=== PATIENT | female | born 1985 | race Caucasian/White ===

== ENCOUNTER 2017-02-12 19:07 | Emergency (ER) | payer MEDICAID ==
[2017-02-12 20:27] LABS: BASOPHIL % 0.4 % (0-2); PLATELET COUNT 279 x10^3mcL (130-400); RED CELL DISTRIBUTION WIDTH 19.1 % (11.5-14.5)
[2017-02-12 20:40] LABS: CALCIUM 8.5 mg/dL (8.5-10.1); CARBON DIOXIDE 27.9 mmol/L (21-32); CHLORIDE SERUM 105 mmol/L (98-107); CREATININE SERUM 0.8 mg/dL (0.6-1.0); GFR1 > 60 mL/min; GLUCOSE SERUM 98 mg/dL (74-106); POTASSIUM SERUM 3.9 mmol/L (3.5-5.1); SODIUM SERUM 138 mmol/L (136-145)
[2017-02-12 20:46] LABS: ALKALINE PHOSPHATASE 55 U/L (46-116); ALT/SGPT 20 U/L (14-59); AST/SGOT 20 U/L (15-37); BILIRUBIN TOTAL 0.25 mg/dL (0.20-1.00); LIPASE 164 IU/L (73-393)
[2017-02-12 20:47] LABS: ALBUMIN 3.3 g/dL (3.4-5.0); AMYLASE 148 U/L (25-115)
[2017-02-12 21:34] VITALS: BP 132/78
== END 2017-02-12 21:34 | disposition home or self-care (01) ==
LOC: ED 19:07
PROVIDERS: Emergency Medicine
DX: R10.32 Left lower quadrant pain (principal); D64.9 Anemia, unspecified
CPT/HCPCS: 83880; J1885

== ENCOUNTER 2017-02-26 18:59 | Emergency (ER) | payer MEDICAID ==
[2017-02-26 19:54] VITALS: BP 136/80
== END 2017-02-26 19:54 | disposition home or self-care (01) ==
LOC: ED 18:59
DX: M54.31 Sciatica, right side (principal); L30.9 Dermatitis, unspecified; G43.909 Migraine, unspecified, not intractable, without status migrainosus